=== PATIENT | female | born 1970 | race Caucasian/White ===

== ENCOUNTER 2016-12-02 19:06 | Emergency (ER) | payer MEDICARE, MEDICAID ==
[~2016-12-02 19:06] MED LIST: ABILIFY5 M1 PO; ALAWAY10 M1 OP; AMITRIPTYLINE H25 M1 PO; ARTIFICIAL TEAR1512 OP; BENTYL10 M1 PO; BUSPIRONE HCL10 M2 PO; CLINDAMYCIN HC150 M1 PO; CYCLOBENZAPRINE10 M1 PO; EFFEXOR XR37.5 M1 PO; EFFEXOR XR75 M1 PO; LAMICTAL25 M2 PO; LISINOPRIL-HCT1 EAC1 PO; LISINOPRIL20 M1 PO; MEDROL4 M2 PO; NEXIUM20 M1 PO; NEXIUM40 M1 PO; NORCO 5-325 TA1 EACH PO; NORCO 7.5-3251 EACH PO; OMEPRAZOLE20 M3 PO; OXYCODONE-ACET1 EAC4 PO; PERCOCET 5-3251 EACH PO; PERCOCET 7.5-31 EAC1 PO; PROAIR HFA8.5 GM IH; PROAIR HFA8.5 GM INH; REMERON15 M1 PO; SERTRALINE HCL50 M4 PO; SIMVASTATIN; XANAX1 M1 PO; ZANAFLEX4 M3 PO; ZITHROMAX250 M1 PO
[2016-12-02] MEDS ORDERED: NEXIUM20 M1 PO (21:02)
[2016-12-02] MEDS ORDERED: VENLAFAXINE HCL25 M1 PO (21:02)
[2016-12-02] MEDS ORDERED: PERCOCET 10-321 EACH PO (21:04)
== END 2016-12-02 22:00 ==
LOC: EDMED 19:06
DX: N81.10 Cystocele, unspecified (principal); J45.909 Unspecified asthma, uncomplicated; Z79.51 Long term (current) use of inhaled steroids

== ENCOUNTER 2016-12-18 09:03 | Emergency (ER) | payer MEDICARE, MEDICAID ==
[~2016-12-18 09:03] MED LIST changes: +PERCOCET 10-321 EACH PO; +VENLAFAXINE HCL25 M1 PO
[2016-12-18] MEDS ORDERED: PERCOCET 5-3251 EACH PO (11:05)
== END 2016-12-18 11:14 ==
LOC: EDMED 09:03
PROC: 2W3EX1Z Immobilization of Right Hand using Splint (ICD-10-PCS; principal; 2016-12-18)
DX: S62.396A Other fracture of fifth metacarpal bone, right hand, initial encounter for closed fracture (principal); W23.0XXA Caught, crushed, jammed, or pinched between moving objects, initial encounter; Y92.019 Unspecified place in single-family (private) house as the place of occurrence of the external cause

== ENCOUNTER 2017-03-14 09:32 | Emergency (ER) | payer MEDICARE, MEDICAID ==
[~2017-03-14] VITALS: Ht 152.4 cm; Wt 77.3 kg
[2017-03-14 10:24] LABS: BASO % 0.6 % (0-2); BASO ABSOLUTE COUNT 0.1 tho/cmm (0.0-0.2); EOS % 2.9 % (0-7); EOSINOPHIL ABSOLUTE COUNT 0.2 tho/cmm (0.0-0.7); HCT-HEMATOCRIT 35.1 % (34.0-49.0); HGB-HEMOGLOBIN 11.2 gm/dl (12.0-15.5); IMMATURE GRANULOCYTES ABSOLUTE 0.02 tho/cmm (0-0.03); IMMATURE GRANULOCYTES PERCENT 0.3 % (0-0.3); LYMPH % 32.5 % (20-45); LYMPH ABSOLUTE COUNT 2.6 tho/cmm (0.8-4.5); MCH (MEAN CORPUSCULAR HGB) 25.5 pg (28.0-32.0); MCHC MEAN CORPUSCULAR HGB CONC 31.9 % (32.0-36.0); MCV (MEAN CELL VOLUME) 79.8 fl (82.0-96.0); MONO % 7.9 % (0-12); MONOCYTE ABSOLUTE COUNT 0.6 tho/cmm (0.0-1.2); NEUTROPHIL ABSOLUTE COUNT 4.5 tho/cmm (1.6-8.0); NEUTROPHIL-AUTOMATED 4.5 tho/cmm (1.6-8.0); NEUTROPHILS % 55.8 % (40-80); PLATELET COUNT 343 tho/cmm (150-450); RED CELL DISTRIBUTION WIDTH 17.7 % (12.4-16.4)
[2017-03-14 10:32] LABS: ANION GAP 12 mmol/L (0-20); BLOOD UREA NITROGEN 15 mg/dl (6-24); CALCIUM 9.2 mg/dl (8.5-10.5); CARBON DIOXIDE-VENOUS 25 mmol/L (22-32); CHLORIDE 107 mmol/l (96-110); CREATININE 0.89 mg/dl (0.50-1.10); GLUCOSE 95 mg/dL (70-110); POTASSIUM 4.1 mmol/L (3.7-5.1); SODIUM 140 mmol/L (135-145); eGFR VALUE FOR BLACK >90 mL/Min
[2017-03-14 10:37] LABS: PREGNANCY-SERUM NEGATIVE (NEGATIVE)
== END 2017-03-14 12:38 ==
LOC: EDMED → EDBD 09:32 → EDMED 09:32
PROVIDERS: Emergency Medicine
DX: R55 Syncope and collapse (principal); F31.9 Bipolar disorder, unspecified; F17.200 Nicotine dependence, unspecified, uncomplicated; Z98.890 Other specified postprocedural states; Z88.2 Allergy status to sulfonamides